=== PATIENT | male | born 2005 | race Caucasian/White ===

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

== ENCOUNTER 2023-01-12 20:49 | Emergency (ER) | payer BC ==
[2023-01-12 21:04] VITALS: BP 115/75; O2SAT 100
--- NOTE | 2023-01-12 21:32 | ED Physician Documentation ---
PD HPI UPPER EXT INJURY - Stated complaint Stated Complaint: RT THUMB PX - Chief complaint Chief Complaint: Trauma Ext - History obtained from History obtained from: Patient PD PAST MEDICAL HISTORY - Past Medical History Past Medical History: Yes Cardiovascular: None Respiratory: Asthma Neuro: None Endocrine/Autoimmune: None GI: None : None HEENT: None Psych: Anxiety, Panic attacks, ADD/ADHD, Other Musculoskeletal: Chronic back pain Derm: None Other Past Medical History: Smokes marijuana sometimes - Past Surgical History Past Surgical History: Yes General: Appendectomy - Present Medications Home Medications: Ambulatory Orders Medication Instructions Recorded Confirmed Clotrimazole 1% Cream [Lotrimin 1% 1 applic TOP BID #15 gm 12/25/22 01/12/23 Cream] Promethazine [Phenergan] 25 mg PO Q6H PRN #15 tab 12/28/22 01/12/23 - Allergies Allergies/Adverse Reactions: Allergies Allergy/AdvReac Type Severity Reaction Status Date / Time amphetamine [From Adderall] AdvReac Hallucinati Verified 01/12/23 21:01 ons dextroamphetamine AdvReac Hallucinati Verified 01/12/23 21:01 [From Adderall] ons - Social History Does the pt smoke?: No Smoking Status: Never smoker Does the pt drink ETOH?: Yes Does the pt have substance abuse?: No - Immunizations Immunizations are current?: Yes - POLST Patient has POLST: No Results - Vitals Vitals: Vital Signs - 24 hr 01/12/23 20:59 Temperature 36.8 C Heart Rate 103 H Respiratory 16 Rate Blood Pressure 115/75 O2 Saturation 100 Oxygen O2 Source Room air Departure - Departure
--- NOTE | 2023-01-12 21:49 | ED Physician Documentation ---
PD HPI UPPER EXT INJURY - Stated complaint Stated Complaint: RT THUMB PX - Chief complaint Chief Complaint: Trauma Ext - History obtained from History obtained from: Patient (Slammed the base of the dominant right thumb in a car door at home earlier today. Moderate pain. No other injuries.) PD PAST MEDICAL HISTORY - Past Medical History Past Medical History: Yes Cardiovascular: None Respiratory: Asthma Neuro: None Endocrine/Autoimmune: None GI: None : None HEENT: None Psych: Anxiety, Panic attacks, ADD/ADHD, Other Musculoskeletal: Chronic back pain Derm: None Other Past Medical History: Smokes marijuana sometimes - Past Surgical History Past Surgical History: Yes General: Appendectomy - Present Medications Home Medications: Ambulatory Orders Medication Instructions Recorded Confirmed Clotrimazole 1% Cream [Lotrimin 1% 1 applic TOP BID #15 gm 12/25/22 01/12/23 Cream] Promethazine [Phenergan] 25 mg PO Q6H PRN #15 tab 12/28/22 01/12/23 - Allergies Allergies/Adverse Reactions: Allergies Allergy/AdvReac Type Severity Reaction Status Date / Time amphetamine [From Adderall] AdvReac Hallucinati Verified 01/12/23 21:01 ons dextroamphetamine AdvReac Hallucinati Verified 01/12/23 21:01 [From Adderall] ons - Social History Does the pt smoke?: No Smoking Status: Never smoker Does the pt drink ETOH?: Yes Does the pt have substance abuse?: No - Immunizations Immunizations are current?: Yes - POLST Patient has POLST: No PD ED PE NORMAL - Vitals Vital signs reviewed: Yes - General General: Alert and oriented X 3, No acute distress - Extremities Extremities: Other (Mild tenderness of the MCP of the right thumb without bruising, deformity. Limited range of motion due to pain. No distal neurovascular compromise.) - Neuro Neuro: Alert and oriented X 3, Normal speech Results - Vitals Vitals: Vital Signs - 24 hr 01/12/23 20:59 Temperature 36.8 C Heart Rate 103 H Respiratory 16 Rate Blood Pressure 115/75 O2 Saturation 100 Oxygen O2 Source Room air - Rads (name of study) 3v XR R thumb - Neg Relevant Findings:: Final report received, EMP independent interpretation of test PD Medical Decision Making - ED course Complexity details: considered differential, d/w patient Departure - Departure Disposition: 01 Home, Self Care Clinical Impression: Contusion of right thumb Qualifiers: Encounter type: initial encounter Damage to nail status: without damage Qualified Code(s): S60.011A - Contusion of right thumb without damage to nail, initial encounter Condition: Good Record reviewed to determine appropriate education?: Yes Instructions: ED Contusion Finger Comments: Tylenol and/or ibuprofen as needed for pain. Ice and elevate. Return for new or worsening symptoms. Follow-up with your doctor in a week if not better. Forms: PCP List, Activity restrictions Discharge Date/Time: 01/12/23 21:55
--- NOTE | 2023-01-12 22:19 | XRAY Report ---
PROCEDURE: Finger(s) RT INDICATIONS: Right thumb injury TECHNIQUE: AP hand, 2 views of the first finger(s) acquired. COMPARISON: None. FINDINGS: Bones: No fractures or dislocations. No suspicious bony lesions. Soft tissues: No suspicious soft tissue calcifications or masses. IMPRESSION: No acute bony abnormality. If clinical symptoms persist, consider a follow-up exam in 710 days. Reviewed by: Brent Kurtz MD on 01/12/2023 10:17 PM PDT Approved by: Brent Kurtz MD on 01/12/2023 10:17 PM PDT Station ID: [id number]
== END 2023-01-12 21:55 | disposition home or self-care (01) ==
LOC: ED 20:49
DX: S60.011A Contusion of right thumb without damage to nail, initial encounter (principal); W23.0XXA Caught, crushed, jammed, or pinched between moving objects, initial encounter; Y92.810 Car as the place of occurrence of the external cause
CPT/HCPCS: 99283

== ENCOUNTER 2023-01-19 11:39 | Emergency (ER) | payer BC ==
[2023-01-19] MEDS ORDERED: ONDANSETRON ODT 4 MG TABLET TL STA (12:34)
--- NOTE | 2023-01-19 12:37 | ED Physician Documentation ---
History of Present Illness - Stated complaint Stated Complaint: ABD PX,NAUSEA - Chief complaint Chief Complaint: Abd Pain - Additonal information Additional information: 17-year-old male presents emergency department for evaluation of nausea, vomiting and diarrhea. Reports the symptoms began about 730 when he got home from work. States that he was feeling unwell while at [employer] and he went to the health clinic where they checked his sugar and found it was in the 60s. Patient reports that with vomiting and diarrhea he felt weak, shaky and had difficulty walking. With rest and eating at home this has improved. Presentation to the emergency department he is alert though anxious appearing. No worrisome vital sign abnormalities. Patient has had multiple ED visits over the last month or so frequently for vomiting and upper epigastric pain. Had a negative ultrasound. Labs were unremarkable. Patient is declining labs today. He just wants to make sure that he is "okay" Review of Systems Constitutional: denies: Fever, Chills Cardiac: reports: Reviewed and negative Respiratory: reports: Reviewed and negative GI: reports: Abdominal Pain, Nausea, Vomiting, Diarrhea : reports: Reviewed and negative Skin: reports: Reviewed and negative PD PAST MEDICAL HISTORY - Past Medical History Past Medical History: Yes Cardiovascular: None Respiratory: Asthma Neuro: None Endocrine/Autoimmune: None GI: None : None HEENT: None Psych: Anxiety, Panic attacks, ADD/ADHD, Other Musculoskeletal: Chronic back pain Derm: None - Past Surgical History Past Surgical History: Yes General: Appendectomy - Present Medications Home Medications: Ambulatory Orders Medication Instructions Recorded Confirmed Sertraline [Zoloft] 25 mg PO DAILY 01/19/23 01/19/23 - Allergies Allergies/Adverse Reactions: Allergies Allergy/AdvReac Type Severity Reaction Status Date / Time amphetamine [From Adderall] AdvReac Hallucinati Verified 01/19/23 11:58 ons dextroamphetamine AdvReac Hallucinati Verified 01/19/23 11:58 [From Adderall] ons - Social History Does the pt smoke?: No Smoking Status: Never smoker Does the pt drink ETOH?: Yes Does the pt have substance abuse?: No - Immunizations Immunizations are current?: Yes - POLST Patient has POLST: No PD ED PE NORMAL - General General: Alert and oriented X 3. No: No acute distress (appears anxious) - HEENT HEENT: PERRL - Neck Neck: Supple, no meningeal sign - Cardiac Cardiac: RRR, No murmur - Respiratory Respiratory: No respiratory distress - Abdomen Abdomen: Normal bowel sounds, Soft, Non tender (No abdominal tenderness elicited with palpation or percussion) - Back Back: No CVA TTP - Derm Derm: Normal color, Warm and dry - Extremities Extremities: No deformity - Neuro Neuro: Alert and oriented X 3 Eye Opening: Spontaneous Motor: Obeys Commands Verbal: Oriented GCS Score: 15 Results - Vitals Vitals: Vital Signs - 24 hr 01/19/23 11:55 Temperature 36.7 C Heart Rate 74 Respiratory 16 Rate Blood Pressure 101/59 L O2 Saturation 100 Oxygen O2 Source Room air - Labs Labs: Laboratory Tests 01/19/23 12:33 POC Whole Bld Glucose 72 PD Medical Decision Making - ED course Complexity details: reviewed results, re-evaluated patient, d/w patient ED course: 17-year-old male presents emergency department for evaluation of nausea vomiting and diarrhea. Symptoms began shortly after he finished his work overnight at [employer]. Reports he was feeling somewhat nauseated at work and they checked his blood sugar and found that it was in the 60s. Patient does endorse cannabis use but last use yesterday in the a.m. By the time patient arrived to the emergency department he was tolerating p.o.'s and was no longer vomiting. He declined laboratory testing today. Seen recently in the ER for similar and had unremarkable labs as well as upper abdominal ultrasound imaging. On evaluation he is without fever or tachycardia or hypotension. He is not actively vomiting. He was given a single dose of Zofran and tolerating p.o.'s. Blood sugar was 72. I discussed with patient that historically given unremarkable ultrasound imaging likely causes of recurrent upper abdominal pain include cannabis use, anxiety reviewed GERD gastritis. Patient has not yet filled the prescription for the Carafate and omeprazole that was previously prescribed. He is advised to follow closely with the PCP. I encouraged him to reconsider his cannabis use. The usual emergent return precautions for worsening or recurrent symptoms was discussed. Departure - Departure Disposition: 01 Home, Self Care Clinical Impression: Nausea and vomiting Qualifiers: Vomiting type: unspecified Qualified Code(s): R11.2 - Nausea with vomiting, unspecified Condition: Stable Instructions: ED Nausea Vomiting Comments: Gilles bear are seen today in the emergency department for nausea and vomiting. You had multiple ED visits for similar. Recent laboratory testing has been unremarkable. Recent ultrasound of your upper abdominal region showed no concerns with your gallbladder or liver. Common causes of recurrent vomiting include acid reflux or gastritis, anxiety as well as cannabis use. I would encourage you to abstain from cannabis use for at least several weeks or even months. If you are able to please fill the prescription for the nausea and acid reflux medications that were previously prescribed. I encourage you to abstain from caffeine, citrus foods and spicy foods. Try to eat multiple small frequent meals throughout the day. You can use the on gestrinone or Zofran as needed for nausea. Please follow closely with your primary care doctor. If these therapies are not improving your symptoms you may benefit from referral for an endoscopy or upper GI evaluation to rule out gastritis. Return to the ER if you have fevers, uncontrolled vomiting, any black or bloody stools. Forms: PCP List
[2023-01-19 13:28] VITALS: BP 108/65; O2SAT 99
== END 2023-01-19 13:21 | disposition home or self-care (01) ==
LOC: ED 11:39
DX: R11.2 Nausea with vomiting, unspecified (principal)
CPT/HCPCS: 99282; 99283; Q0162

== ENCOUNTER 2023-01-22 17:17 | Emergency (ER) | payer BC ==
[2023-01-22 19:44] VITALS: BP 108/67; O2SAT 97
[2023-01-22] MEDS ORDERED: KETOROLAC 30 MG/ML VIAL IM STA (20:02)
--- NOTE | 2023-01-22 20:04 | ED Physician Documentation ---
History of Present Illness - Stated complaint Stated Complaint: BACK PX - Chief complaint Chief Complaint: Back Pain - Additonal information Additional information: Nineteen 1-year-old male presents emergency department for evaluation of acute low back pain. He felt yesterday evening when he was getting off work. Did not think much of it but when he woke up this morning he had a stiff back. He is taken nothing for pain. No saddle anesthesia, loss of bowel. Antalgic gait but ambulatory without assistance. Review of Systems Musculoskeletal: reports: Back pain PD PAST MEDICAL HISTORY - Past Medical History Cardiovascular: None Respiratory: Asthma Neuro: None Endocrine/Autoimmune: None GI: None : None HEENT: None Psych: Anxiety, Panic attacks, ADD/ADHD, Other Musculoskeletal: Chronic back pain Derm: None - Past Surgical History Past Surgical History: Yes General: Appendectomy - Present Medications Home Medications: Ambulatory Orders Medication Instructions Recorded Confirmed Sertraline [Zoloft] 25 mg PO DAILY 01/19/23 01/22/23 Acetaminophen [Tylenol] 500 mg PO Q4-6H #30 tablet 01/22/23 Ibuprofen [Motrin] 600 mg PO Q6H PRN #30 tab 01/22/23 - Allergies Allergies/Adverse Reactions: Allergies Allergy/AdvReac Type Severity Reaction Status Date / Time amphetamine [From Adderall] AdvReac Hallucinati Verified 01/19/23 11:58 ons dextroamphetamine AdvReac Hallucinati Verified 01/19/23 11:58 [From Adderall] ons - Social History Does the pt smoke?: No Smoking Status: Never smoker Does the pt drink ETOH?: Yes Does the pt have substance abuse?: No - Immunizations Immunizations are current?: Yes - POLST Patient has POLST: No PD ED PE NORMAL - General General: Alert and oriented X 3, No acute distress - HEENT HEENT: PERRL - Back Back: No spinal TTP (No midline lumbar tenderness. Reduced forward flexion secondary to pain. No rash. Bilateral paraspinous tenderness. Patient has difficulty standing fully upright. Motor strength 5 of 5.) - Derm Derm: Warm and dry, No rash - Extremities Extremities: No deformity Results - Vitals Vitals: Vital Signs - 24 hr 01/22/23 01/22/23 17:29 19:41 Temperature 36.6 C 36.4 C L Heart Rate 110 H 77 Respiratory 18 16 Rate Blood Pressure 127/77 108/67 O2 Saturation 99 97 Oxygen O2 Source Room air PD Medical Decision Making - ED course Complexity details: d/w patient ED course: 17-year-old male here for evaluation of acute low back pain. No red flags. Reassuring exam. Had not taken anything for pain. He received Toradol IM with marked improvement in symptoms. Recommended Tylenol Motrin [id number] for discomfort. Discussed routine conservative care measures of mild back strain. Emergent red flag return precautions discussed Departure - Departure Disposition: Home, Self Care Clinical Impression: Low back pain Qualifiers: Chronicity: acute Back pain laterality: bilateral Sciatica presence: without sciatica Qualified Code(s): M54.50 - Low back pain, unspecified Condition: Stable Record reviewed to determine appropriate education?: Yes Instructions: ED Sprain Strain Lumbar Prescriptions: Ibuprofen [Motrin] 600 mg PO Q6H PRN #30 tab PRN Reason: Pain Acetaminophen [Tylenol] 500 mg PO Q4-6H #30 tablet Comments: Gilles you sprained or strained your low back. Most instances of low back pain like this get better over the course of a week or so. In general gentle stretching is recommended. I recommend that you attempt to walk fully upright and in a normal position. This will prevent other muscles from compensating. Please take Tylenol 500 mg 2-3 times a day for discomfort or alternate with Motrin/ibuprofen/Advil 600 mg taken with food also 2-3 times a day. If at any point you develop numbness in your genital area, lose control of your bowel or bladder function then you should please return to the ER. Otherwise follow closely with your primary care doctor.
== END 2023-01-22 21:02 | disposition home or self-care (01) ==
LOC: ED 17:17
DX: M54.50 Low back pain, unspecified (principal)
CPT/HCPCS: 96372; 99283

== ENCOUNTER 2023-01-28 16:00 | Outpatient (CLI) | payer BC ==
--- NOTE | 2023-01-28 16:41 | XRAY Report ---
PROCEDURE: Lumbar Spine 2 View INDICATIONS: LOW BACK PAIN TECHNIQUE: 3 views of the lumbar spine were acquired. COMPARISON: None. FINDINGS: Bones: 5 [id number] vertebrae are present. There is normal bony alignment. No vertebral body compression fractures. No suspicious bony lesions. Soft tissues: Overlying bowel gas pattern is normal. No suspicious soft tissue calcifications. IMPRESSION: No acute osseous lesion. If there is continued clinical concern for pathology, then MRI should be con sidered for further evaluation. Reviewed by: Jennifer Conner MD, PhD on 01/28/2023 4:40 PM PST Approved by: Jennifer Conner MD, PhD on 01/28/2023 4:40 PM PST Station ID: [id number]
== END 2023-01-28 16:01 | disposition home or self-care (01) ==
LOC: DI 16:00
PROVIDERS: ATTEND Family Medicine
DX: M54.50 Low back pain, unspecified (principal); M54.59 Other low back pain

== ENCOUNTER 2023-01-30 16:27 | Outpatient (CLI) | payer BC | END 2023-01-30 16:28 | disposition critical access hospital (66) | LOC: EMS 16:27 | DX: R06.02 Shortness of breath (principal); Z20.828 Contact with and (suspected) exposure to other viral communicable diseases | CPT/HCPCS: A0425; A0429 ==

== ENCOUNTER 2023-01-30 16:35 | Emergency (ER) | payer BC ==
--- NOTE | 2023-01-30 16:46 | ED Physician Documentation ---
PD HPI URI - Stated complaint Stated Complaint: SOA - Chief complaint Chief Complaint: Resp - History obtained from History obtained from: Patient, EMS - Additional information Additional information: 17-year-old with mild intermittent asthma was exposed to rhinovirus by multiple for members of the family has been sick for about 3 days with cough, nonproductive, shortness of breath nasal congestion and sore throat. No fevers. Seen at the walk-in clinic and given something for cough but feeling like he is using his albuterol inhaler too much. PD PAST MEDICAL HISTORY - Past Medical History Past Medical History: Yes Cardiovascular: None Respiratory: Asthma Neuro: None Endocrine/Autoimmune: None GI: None : None HEENT: None Psych: Anxiety, Panic attacks, ADD/ADHD, Other Musculoskeletal: Chronic back pain Derm: None - Past Surgical History Past Surgical History: Yes General: Appendectomy - Present Medications Home Medications: Ambulatory Orders Medication Instructions Recorded Confirmed Sertraline [Zoloft] 25 mg PO DAILY 01/19/23 01/22/23 Acetaminophen [Tylenol] 500 mg PO Q4-6H #30 tablet 01/22/23 Ibuprofen [Motrin] 600 mg PO Q6H PRN #30 tab 01/22/23 Famotidine [Acid Rehabilitation Specialist] 20 mg PO DAILY 01/30/23 01/30/23 Ibuprofen [Motrin] 600 mg PO Q6H PRN #30 tab 01/30/23 predniSONE [Deltasone] 20 mg PO [id number] #21 tab 01/30/23 - Allergies Allergies/Adverse Reactions: Allergies Allergy/AdvReac Type Severity Reaction Status Date / Time amphetamine [From Adderall] AdvReac Hallucinati Verified 01/30/23 16:44 ons dextroamphetamine AdvReac Hallucinati Verified 01/30/23 16:44 [From Adderall] ons - Social History Does the pt smoke?: No Smoking Status: Never smoker Does the pt drink ETOH?: Yes Does the pt have substance abuse?: No - Immunizations Immunizations are current?: Yes - POLST Patient has POLST: No PD ED PE NORMAL - Vitals Vital signs reviewed: Yes - General General: Alert and oriented X 3, No acute distress - Cardiac Cardiac: RRR, No murmur - Respiratory Respiratory: No respiratory distress, Clear bilaterally - Neuro Neuro: Alert and oriented X 3, Normal speech Results - Vitals Vitals: Vital Signs - 24 hr 01/30/23 16:40 Temperature 36.7 C Heart Rate 120 H Respiratory 18 Rate Blood Pressure 121/74 O2 Saturation 98 Oxygen O2 Source Room air PD Medical Decision Making - ED course ED course: 17-year-old with history of asthma presents with shortness of breath in the setting of known viral URI with rhinovirus with multiple family members being sick. Will start on steroids. No clinical evidence of pneumonia or bacterial illness. Departure - Departure Disposition: 01 Home, Self Care Clinical Impression: Asthma Qualifiers: Asthma severity: mild Asthma persistence: intermittent Asthma complication type: with acute exacerbation Qualified Code(s): J45.21 - Mild intermittent asthma with (acute) exacerbation Upper respiratory tract infection Qualifiers: URI type: unspecified viral URI Qualified Code(s): J06.9 - Acute upper respiratory infection, unspecified Condition: Good Record reviewed to determine appropriate education?: Yes Instructions: Asthma Dc Prescriptions: predniSONE [Deltasone] 20 mg PO [id number] #21 tab Ibuprofen [Motrin] 600 mg PO Q6H PRN #30 tab PRN Reason: Pain Comments: You were seen today for an asthma exacerbation likely related to the rhinovirus that multiple family members have. I am prescribing some steroids which should help with your shortness of breath. Also some anti-inflammatories for the aches and pains. Return for new or worsening symptoms or for high fevers. Follow-up with your doctor in a week if not improving. Forms: PCP List, Activity restrictions
[2023-01-30] MEDS: predniSONE 20 MG TABLET PO STA ×2 (16:52→17:56)
[2023-01-30] MEDS ORDERED: ONDANSETRON ODT 4 MG TABLET TL STA (16:53)
[2023-01-30] MEDS ORDERED: PROMETHAZINE 25 MG/1 ML VIAL IM STA (17:23)
[2023-01-30 18:09] VITALS: BP 119/68; O2SAT 97
== END 2023-01-30 18:01 | disposition home or self-care (01) ==
LOC: EDUNIT# → ED 16:35
DX: J45.21 Mild intermittent asthma with (acute) exacerbation (principal); J06.9 Acute upper respiratory infection, unspecified; Z79.899 Other long term (current) drug therapy
CPT/HCPCS: 96372; 99283; 99284; J7512; Q0162

== ENCOUNTER 2023-02-02 09:50 | Outpatient (CLI) | payer BC | END 2023-02-02 23:59 | disposition home or self-care (01) | LOC: EMS 09:50 | DX: R11.2 Nausea with vomiting, unspecified (principal) | CPT/HCPCS: A0425; A0429 ==

== ENCOUNTER 2023-02-02 10:00 | Emergency (ER) | payer BC ==
[2023-02-02] MEDS ORDERED: SODIUM CHLORIDE 0.9% 1,000 ML IV STA (10:20)
[2023-02-02] MEDS ORDERED: DROPERIDOL 5 MG/2 ML VIAL IVP STA (10:20)
--- NOTE | 2023-02-02 10:21 | ED Physician Documentation ---
PD HPI NVD - Stated complaint Stated Complaint: N/V - Chief complaint Chief Complaint: Abd Pain - History obtained from History obtained from: Patient, EMS - Additonal information Additional information: 17-year-old Daily cannabis user presents with 3 days of epigastric pain, severe vomiting. He has had a little bit of diarrhea with this but really the vomiting is most concerning thing. He has had concerns for cannabinoid hyperemesis in the past but states "I quit using and it did not help." Of note this is his ninth emergency department visit in 2 months. PD PAST MEDICAL HISTORY - Past Medical History Past Medical History: Yes Cardiovascular: None Respiratory: Asthma Neuro: None Endocrine/Autoimmune: None GI: GERD : None HEENT: None Psych: Depression, Anxiety, Panic attacks, ADD/ADHD, Other Musculoskeletal: Chronic back pain Derm: None - Past Surgical History Past Surgical History: Yes General: Appendectomy - Present Medications Home Medications: Ambulatory Orders Medication Instructions Recorded Confirmed Sertraline [Zoloft] 50 mg PO DAILY 01/19/23 02/02/23 Famotidine [Acid Pouncing Lathe Operator] 20 mg PO DAILY 01/30/23 02/02/23 Albuterol Sulf [Ventolin Hfa 1 - 2 puffs INH Q4HR PRN 02/02/23 02/02/23 Inhaler] LORazepam [Ativan] 1 mg PO TID PRN #6 tablet 02/02/23 Ondansetron Odt [Zofran Odt] 4 mg TL Q8H PRN 02/02/23 02/02/23 Ondansetron Odt [Zofran] 4 mg TL Q6H PRN #10 tablet 02/02/23 - Allergies Allergies/Adverse Reactions: Allergies Allergy/AdvReac Type Severity Reaction Status Date / Time amphetamine [From Adderall] AdvReac Hallucinati Verified 02/02/23 10:06 ons dextroamphetamine AdvReac Hallucinati Verified 02/02/23 10:06 [From Adderall] ons - Social History Does the pt smoke?: No Smoking Status: Never smoker Does the pt drink ETOH?: Yes Does the pt have substance abuse?: Yes Substance Use and Type: Marijuana - Immunizations Immunizations are current?: Yes - POLST Patient has POLST: No PD ED PE NORMAL - Vitals Vital signs reviewed: Yes - General General: Alert and oriented X 3, Other (Crying and anxious) - Abdomen Abdomen: Normal bowel sounds, Soft, Non tender - Neuro Neuro: Alert and oriented X 3, Normal speech Results - Vitals Vitals: Vital Signs - 24 hr 02/02/23 02/02/23 02/02/23 10:07 11:10 11:42 Temperature 36.8 C 36.8 C 36.9 C Heart Rate 108 H 112 H 95 Respiratory 20 16 18 Rate Blood Pressure 156/96 H 136/89 H 147/97 H O2 Saturation 100 97 98 Oxygen O2 Source Room air - Labs Labs: Laboratory Tests 02/02/23 10:15 Sodium 137 Potassium 3.4 L Chloride 99 L Carbon Dioxide 26 Anion Gap 12.0 BUN 10 Creatinine 0.7 Estimated GFR (MDRD) 145 Glucose 93 Calcium 10.5 H PD Medical Decision Making - ED course ED course: 17-year-old with anxiety and vomiting, most consistent with cannabinoid hyperemesis. He is nontender. BMP showing mild hypokalemia repleted orally. After administration of IV fluids and IV droperidol he was feeling much better. Departure - Departure Disposition: 01 Home, Self Care Clinical Impression: Cannabinoid hyperemesis syndrome Condition: Good Record reviewed to determine appropriate education?: Yes Instructions: ED Nausea Vomiting Prescriptions: LORazepam [Ativan] 1 mg PO TID PRN #6 tablet PRN Reason: Anxiety Ondansetron Odt [Zofran] 4 mg TL Q6H PRN #10 tablet PRN Reason: Nausea / Vomiting Comments: I sent your prescription electronically to [facility] in [place]. As discussed, your constellation of symptoms is most consistent with cannabinoid hyperemesis. Its not healthy to use any drug including THC daily. Call your doctor to arrange a follow-up appointment, make the next available appointment. In the interim, return anytime if worse or if new symptoms develop. Forms: PCP List, Activity restrictions Discharge Date/Time: 02/02/23 11:48
[2023-02-02 10:37] LABS: CALCIUM 10.5 mg/dL (8.5-10.3); CREATININE 0.7 mg/dL (0.6-1.3); POTASSIUM 3.4 mmol/L (3.5-4.5)
[2023-02-02] MEDS ORDERED: POTASSIUM BICARB 25 MEQ TABLET PO STA (10:46)
[2023-02-02 11:43] VITALS: BP 147/97; O2SAT 98
== END 2023-02-02 11:48 | disposition home or self-care (01) ==
LOC: EDUNIT# → ED 10:00
DX: R11.10 Vomiting, unspecified (principal); F12.90 Cannabis use, unspecified, uncomplicated; E87.6 Hypokalemia; Z79.899 Other long term (current) drug therapy
CPT/HCPCS: 36415; 80048; 96374; 99283; A9270

== ENCOUNTER 2023-05-13 13:53 | Emergency (ER) | payer BC ==
[2023-05-13 14:07] VITALS: BP 132/71; O2SAT 100
[2023-05-13] MEDS: ONDANSETRON 4 MG/2 ML VIAL IVP STA (14:23)
[2023-05-13] MEDS: ONDANSETRON ODT 4 MG TABLET TL STA (14:23)
[2023-05-13 14:53] LABS: BASOPHILS # (AUTO) 0.1 10^3/uL (0.0-0.1); BASOPHILS % (AUTO) 0.9 %; EOSINOPHILS # (AUTO) 0.2 10^3/uL (0.0-0.7); EOSINOPHILS % (AUTO) 2.8 %; HCT - HEMATOCRIT 42.6 % (42.0-52.0); HGB - HEMOGLOBIN 14.4 g/dL (14.0-18.0); LYMPHOCYTES # (AUTO) 2.1 10^3/uL (1.5-3.5); MEAN CORPUSCULAR HEMOGLOBIN 29.9 pg (27.0-31.0); MEAN CORPUSCULAR HGB CONC 33.8 g/dL (32.0-36.0); MEAN CORPUSCULAR VOLUME 88.6 fL (80.0-94.0); MEAN PLATELET VOLUME 10.4 fL (7.4-11.4); MONOCYTES # (AUTO) 0.6 10^3/uL (0.0-1.0); PLT - PLATELET COUNT 248 10^3/uL (130-450); RED BLOOD COUNT 4.81 10^6/uL (4.70-6.10); RED CELL DISTRIBUTION WIDTH 12.5 % (12.0-15.0); WHITE BLOOD COUNT 7.9 x10^3/uL (4.8-10.8)
[2023-05-13 15:08] LABS: ALBUMIN 4.7 g/dL (3.2-5.5); ALBUMIN/GLOBULIN RATIO 1.6 (1.0-2.2); ALKALINE PHOSPHATASE 77 IU/L (42-121); ALT ALANINE AMINOTRANSFERASE 12 IU/L (10-60); AST ASPARTATE AMINOTRANSFERASE 14 IU/L (10-42); BILIRUBIN,TOTAL 0.7 mg/dL (0.2-1.0); BUN - BLOOD UREA NITROGEN 12 mg/dL (6-20); CALCIUM 10.2 mg/dL (8.5-10.3); CARBON DIOXIDE - CO2 26 mmol/L (21-32); CHLORIDE 107 mmol/L (101-111); CREATININE 0.7 mg/dL (0.6-1.3); GFR - MDRD 145 (>89); GLUCOSE 91 mg/dL (74-104); POTASSIUM 3.5 mmol/L (3.5-4.5); SODIUM 140 mmol/L (135-145); TOTAL PROTEIN 7.6 g/dL (6.4-8.9)
[2023-05-13 15:11] LABS: LIPASE < 10 U/L (11-82)
--- NOTE | 2023-05-13 15:20 | ED Physician Documentation ---
PD HPI GI BLEED - Stated complaint Stated Complaint: MALE - Chief complaint Chief Complaint: Abd Pain - History obtained from History obtained from: Patient - Additional information Additional information: Patient is a 17-year-old male presenting for evaluation of blood in his stools that he noticed around lunchtime today. Patient states he was at work and felt the need to have a bowel movement. Instead of normal stools he reports it was mostly bloody with some clots. He had some cramping at that time. He has nausea. He has had ongoing issues with upper abdominal pain and reports having upper endoscopy through [facility]. He believes he has ulcers as he states it was listed on his paperwork but he states that no one told him about this and that he is not on any medications and was not instructed to modify his diet or make any other changes. He is supposed to have a follow- up appointment in a few months. He has never had a colonoscopy. He does not take a blood thinner. Review of Systems Constitutional: denies: Fever Cardiac: denies: Chest pain / pressure Respiratory: denies: Dyspnea GI: reports: Bloody / black stool. denies: Abdominal Pain, Vomiting : denies: Dysuria, Hematuria PD PAST MEDICAL HISTORY - Past Medical History Cardiovascular: None Respiratory: Asthma Neuro: None Endocrine/Autoimmune: None GI: GERD : None HEENT: None Psych: Depression, Anxiety, Panic attacks, ADD/ADHD, Other Musculoskeletal: Chronic back pain Derm: None - Past Surgical History Past Surgical History: Yes General: Appendectomy - Present Medications Home Medications: Ambulatory Orders Medication Instructions Recorded Confirmed No Known Home Medications 05/13/23 05/13/23 - Allergies Allergies/Adverse Reactions: Allergies Allergy/AdvReac Type Severity Reaction Status Date / Time amphetamine [From Adderall] AdvReac Hallucinati Verified 05/13/23 14:06 ons dextroamphetamine AdvReac Hallucinati Verified 05/13/23 14:06 [From Adderall] ons - Social History Does the pt smoke?: No Smoking Status: Never smoker Does the pt drink ETOH?: Yes Does the pt have substance abuse?: Yes - Immunizations Immunizations are current?: Yes - POLST Patient has POLST: No PD ED PE NORMAL - General General: Alert and oriented X 3, No acute distress, Well developed/nourished - HEENT HEENT: Atraumatic, Moist mucous membranes, Pharynx benign - Neck Neck: Supple, no meningeal sign - Cardiac Cardiac: RRR, Strong equal pulses - Respiratory Respiratory: No respiratory distress, Clear bilaterally - Abdomen Abdomen: Normal bowel sounds, Soft, Non tender, Non distended - Rectal Rectal: Other (Chaperoned by Jassi; No external masses, no visible fissure, no blood on glove, yellow-colored stool) - Derm Derm: Warm and dry - Neuro Neuro: Normal speech Results - Vitals Vitals: Vital Signs - 24 hr 05/13/23 13:59 Temperature 36.5 C Heart Rate 101 H Respiratory 20 Rate Blood Pressure 132/71 H O2 Saturation 100 Oxygen O2 Source Room air - Labs Labs: Microbiology 05/13/23 15:26 Occult Blood - Final Stool Laboratory Tests 05/13/23 05/13/23 14:38 14:38 WBC 7.9 RBC 4.81 Hgb 14.4 Hct 42.6 MCV 88.6 MCH 29.9 MCHC 33.8 RDW 12.5 Plt Count 248 MPV 10.4 Neut # (Auto) 5.0 Lymph # (Auto) 2.1 Emmet # (Auto) 0.6 Eos # (Auto) 0.2 Baso # (Auto) 0.1 Absolute Nucleated RBC 0.00 Nucleated RBC % 0.0 Sodium 140 Potassium 3.5 Chloride 107 Carbon Dioxide 26 Anion Gap 7.0 BUN 12 Creatinine 0.7 Estimated GFR (MDRD) 145 Glucose 91 Calcium 10.2 Total Bilirubin 0.7 AST 14 ALT 12 Alkaline Phosphatase 77 Total Protein 7.6 Albumin 4.7 Globulin 2.9 Albumin/Globulin Ratio 1.6 Lipase < 10 L PD Medical Decision Making - ED course Complexity details: reviewed results, d/w patient ED course: Patient is a 17-year-old male presenting for evaluation of bright red blood per rectum earlier today. Patient reports having nausea which improved after p.o. Zofran. No abdominal tenderness noted on exam. Vital signs are stable. Does not take a blood thinner. No repeated episodes. He is ambulatory here without any difficulty. CBC and chemistries were reviewed without any significant findings. No blood or abnormalities noted on rectal exam and Hemoccult is negative. Patient has seen GI in the past including recently for upper endoscopy. Recommend close follow-up to determine whether if he should have a colonoscopy to evaluate his rectal bleeding today. Patient counseled on concerning symptoms to return for. Departure - Departure Disposition: 01 Home, Self Care Clinical Impression: Bright red blood per rectum Condition: Stable Instructions: ED Hematochezia Stable Comments: You were evaluated for blood in your stools. At this time your labs are reassuring and you have not lost a significant amount of blood. I would recomm end close follow-up with your guest service host (GI doctors, same ones who did get your scope to look in your stomach) To decide whether you should have a colonoscopy which is a scope that looks Into the rectum and colon to identify possible causes for the bleeding in your stools. Our testing of your stools today does not show blood but You still need close follow-up. Return to the ER with any worsening symptoms such as feeling lightheaded, abdominal pain, weakness. Forms: PCP List Discharge Date/Time: 05/13/23 15:52
== END 2023-05-13 15:52 | disposition home or self-care (01) ==
LOC: ED 13:53
DX: K62.5 Hemorrhage of anus and rectum (principal); R11.0 Nausea
CPT/HCPCS: 36415; 80053; 82272; 83690; 85025; 99283; Q0162

== ENCOUNTER 2023-08-25 17:08 | Emergency (ER) | payer BC, OTHER ==
[2023-08-25 17:27] VITALS: BP 116/63; O2SAT 99
--- NOTE | 2023-08-25 17:29 | ED Physician Documentation ---
History of Present Illness - Stated complaint Stated Complaint: STUFFY NOSE, - Chief complaint Chief Complaint: General - History obtained from History obtained from: Patient - Additonal information Additional information: The patient comes to the emergency department chief complaint of nasal congestion and cough since yesterday morning. He states that he felt a little bit lightheaded during the day and then when he sat down on the toilet to have a bowel movement, he was pushing really hard and suddenly passed out. He states that security from his workplace found him on the floor in the bathroom. Patient denies any fevers or chills. He states he has had a little bit of nausea and still does have that. He stayed home from work today and feels like he is ready to go back now. He denies any chest pain, shortness of breath, or palpitations. He is otherwise fairly healthy. No other complaints at this time. He is no longer feeling lightheaded. PD PAST MEDICAL HISTORY - Past Medical History Cardiovascular: None Respiratory: Asthma Neuro: None Endocrine/Autoimmune: None GI: GERD : None HEENT: None Psych: Depression, Anxiety, Panic attacks, ADD/ADHD, Other Musculoskeletal: Chronic back pain Derm: None - Past Surgical History Past Surgical History: Yes General: Appendectomy - Present Medications Home Medications: Ambulatory Orders Medication Instructions Recorded Confirmed No Known Home Medications 05/13/23 08/25/23 - Allergies Allergies/Adverse Reactions: Allergies Allergy/AdvReac Type Severity Reaction Status Date / Time amphetamine [From Adderall] AdvReac Hallucinati Verified 08/25/23 17:18 ons dextroamphetamine AdvReac Hallucinati Verified 08/25/23 17:18 [From Adderall] ons - Social History Does the pt smoke?: No Smoking Status: Never smoker Does the pt drink ETOH?: Yes Does the pt have substance abuse?: Yes - Immunizations Immunizations are current?: Yes - POLST Patient has POLST: No PD ED PE NORMAL - Vitals Vital signs reviewed: Yes - General General: Alert and oriented X 3, No acute distress, Well developed/nourished - HEENT HEENT: Atraumatic, PERRL, EOMI, Moist mucous membranes - Neck Neck: Supple, no meningeal sign - Cardiac Cardiac: RRR, No murmur, Strong equal pulses - Respiratory Respiratory: No respiratory distress, Clear bilaterally - Abdomen Abdomen: Soft, Non tender, Non distended - Derm Derm: Normal color, Warm and dry, No rash - Extremities Extremities: No deformity, No edema - Neuro Neuro: Other (Alert, appropriate, grossly intact.) - Psych Psych: Normal mood, Normal affect Results - Vitals Vitals: Vital Signs - 24 hr 08/25/23 17:12 Temperature 36.5 C Heart Rate 100 Respiratory 16 Rate Blood Pressure 116/63 O2 Saturation 99 Oxygen O2 Source Room air PD Medical Decision Making - ED course Complexity details: reviewed results, re-evaluated patient, considered differential, d/w patient ED course: A respiratory PCR panel was obtained and send and is pending at this time. I discussed with the patient that his symptoms are fairly minimal and he has been feeling better with regard to the lightheadedness since. His syncopal episode was associated with straining and setting in which the patient was already lightheaded, likely from general illness. He is young and fairly low risk for serious causes of syncope. He is stable for discharge home. We have discussed home management of the symptoms as well as usual indications for return. Departure - Departure Disposition: 01 Home, Self Care Clinical Impression: Viral syndrome Condition: Stable Instructions: ED Viral Syndrome Comments: A viral panel has been sent and is pending at this time. There is no evidence of an emergent condition this evening. Please be sure you are getting plenty of fluids to drink and plenty of rest. If you feel lightheaded, please sit down or lay down until the feeling passes. You may go back to work if you feel well enough to do so. Please follow-up with your primary doctor as needed. Forms: PCP List, Activity restrictions
[2023-08-25 19:18] LABS: B. PARAPERTUSSIS- RESP PCR PAN NOT DETECTED; B. PERTUSSIS- RESP PCR PANEL NOT DETECTED; C. PNEUMONIAE- RESP PCR PANEL NOT DETECTED; CORONAVIRUS 229E-RESP PCR NOT DETECTED; CORONAVIRUS HKU1-RESP PCR NOT DETECTED; CORONAVIRUS NL63-RESP PCR NOT DETECTED; CORONAVIRUS OC43-RESP PCR NOT DETECTED; HUMAN METAPNEUMOVIRUS NOT DETECTED; INFLUENZA A- RESP PCR PANEL NOT DETECTED; INFLUENZA B - RESP PCR PANEL NOT DETECTED; M. PNEUMONIAE- RESP PCR PANEL NOT DETECTED; PARAINFLUENZA VIRUS 1 NOT DETECTED; PARAINFLUENZA VIRUS 2 NOT DETECTED; PARAINFLUENZA VIRUS 3 NOT DETECTED; PARAINFLUENZA VIRUS 4 NOT DETECTED; RHINOVIRUS/ENTEROVIRUS NOT DETECTED; RSV- RESP PCR PANEL NOT DETECTED; SARS-CoV-2 -RESP PCR PANEL NOT DETECTED
== END 2023-08-25 17:41 | disposition home or self-care (01) ==
LOC: ED 17:08
DX: B34.9 Viral infection, unspecified (principal); J45.909 Unspecified asthma, uncomplicated
CPT/HCPCS: 87633; 99283

== ENCOUNTER 2023-08-26 14:32 | Emergency (ER) | payer SELFPAY ==
[2023-08-26 14:55] VITALS: BP 120/76; O2SAT 98
--- NOTE | 2023-08-26 17:41 | ED Physician Documentation ---
PD HPI LOWER EXT INJURY - Stated complaint Stated Complaint: RT LEG INJ - Chief complaint Chief Complaint: Ext Problem - History obtained from History obtained from: Patient - Additional information Additional information: 17-year-old male presents with right hip pain. Patient works at [employer] and states that he has been going up and down a ladder frequently for the last several days. He has pain in his right hip that is atraumatic in nature. He states that he was told by his workplace to come to the ER for evaluation. No medications taken prior to arrival. Review of Systems Constitutional: denies: Fever, Chills Musculoskeletal: reports: Joint pain. denies: Neck pain, Back pain, Extremity pain, Extremity swelling, Joint swelling PD PAST MEDICAL HISTORY - Past Medical History Past Medical History: Yes Cardiovascular: None Respiratory: Asthma Neuro: None Endocrine/Autoimmune: None GI: GERD : None HEENT: None Psych: Depression, Anxiety, Panic attacks, ADD/ADHD, Other Musculoskeletal: Chronic back pain Derm: None - Past Surgical History Past Surgical History: Yes General: Appendectomy - Present Medications Home Medications: Ambulatory Orders Medication Instructions Recorded Confirmed No Known Home Medications 05/13/23 08/26/23 - Allergies Allergies/Adverse Reactions: Allergies Allergy/AdvReac Type Severity Reaction Status Date / Time amphetamine [From Adderall] AdvReac Hallucinati Verified 08/26/23 14:43 ons dextroamphetamine AdvReac Hallucinati Verified 08/26/23 14:43 [From Adderall] ons - Social History Does the pt smoke?: Yes Smoking Status: Current every day smoker Does the pt drink ETOH?: Yes Does the pt have substance abuse?: Yes Substance Use and Type: Marijuana - Immunizations Immunizations are current?: No Immunizations: Other immun not current - POLST Patient has POLST: No PD ED PE NORMAL - Vitals Vital signs reviewed: Yes - General General: Alert and oriented X 3, No acute distress, Well developed/nourished - Derm Derm: Normal color, Warm and dry, No rash - Extremities Extremities: No deformity, No edema, Other (Generalized tenderness along lateral right hip. Pain with [id number] stretch) - Neuro Neuro: Alert and oriented X 3, labor expediter 2-12 intact, No motor deficit, Normal speech Results - Vitals Vitals: Vital Signs - 24 hr 08/26/23 14:43 Temperature 36.5 C Heart Rate 86 Respiratory 16 Rate Blood Pressure 120/76 O2 Saturation 98 Oxygen O2 Source Room air PD Medical Decision Making - ED course Complexity details: considered differential, d/w patient ED course: Atraumatic right hip pain after going up and down ladders. Physical exam is suggestive of muscle strain. Patient counseled to take Tylenol and ibuprofen as needed for pain and to use gentle stretching exercises for relief. Note for work provided. Departure - Departure Disposition: Home, Self Care Clinical Impression: Pain in extremity Condition: Stable Instructions: ED Strain Muscle Ext Comments: Take Tylenol and ibuprofen for discomfort. Use gentle stretching exercises and massage as well for pain. Forms: PCP List Discharge Date/Time: 08/26/23 17:44
== END 2023-08-26 17:44 | disposition home or self-care (01) ==
LOC: ED 14:32
DX: M25.551 Pain in right hip (principal); F17.200 Nicotine dependence, unspecified, uncomplicated
CPT/HCPCS: 99281; 99283

== ENCOUNTER 2023-08-31 17:57 | Emergency (ER) | payer SELFPAY ==
[2023-08-31 18:26] VITALS: BP 120/65; O2SAT 97
--- NOTE | 2023-08-31 18:59 | XRAY Report ---
PROCEDURE: Toe(s) 2+V RT INDICATIONS: right first toe pain TECHNIQUE: 3 views of the right toe(s) acquired. COMPARISON: None. FINDINGS: Bones: No fractures or dislocations. No suspicious bony lesions. Soft tissues: No suspicious soft tissue densities. IMPRESSION: No focal bony abnormality of the great toe can be seen by plain film. Reviewed by: Frankie Schumacher MD on 08/31/2023 5:57 PM AKDT Approved by: Frankie Schumacher MD on 08/31/2023 5:57 PM AKDT Station ID: [id number]
--- NOTE | 2023-08-31 20:26 | ED Physician Documentation ---
PD HPI LOWER EXT INJURY - Stated complaint Stated Complaint: R TOE PX - Chief complaint Chief Complaint: Ext Problem - Additional information Additional information: 17-year-old male presents emergency department for right first toe pain. Pritesh soto actually dropped a weight on it yesterday says that the pain was so severe that he was unable to go to work today able to walk without any difficulty able to flex and extend. PD PAST MEDICAL HISTORY - Past Medical History Cardiovascular: None Respiratory: Asthma Neuro: None Endocrine/Autoimmune: None GI: GERD : None HEENT: None Psych: Depression, Anxiety, Panic attacks, ADD/ADHD, Other Musculoskeletal: Chronic back pain Derm: None - Past Surgical History Past Surgical History: Yes General: Appendectomy - Present Medications Home Medications: Ambulatory Orders Medication Instructions Recorded Confirmed No Known Home Medications 05/13/23 09/01/23 - Allergies Allergies/Adverse Reactions: Allergies Allergy/AdvReac Type Severity Reaction Status Date / Time amphetamine [From Adderall] AdvReac Hallucinati Verified 09/01/23 17:33 ons dextroamphetamine AdvReac Hallucinati Verified 09/01/23 17:33 [From Adderall] ons - Social History Does the pt smoke?: Yes Smoking Status: Current every day smoker Does the pt drink ETOH?: Yes Does the pt have substance abuse?: Yes - Immunizations Immunizations are current?: No Immunizations: Other immun not current - POLST Patient has POLST: No PD ED PE NORMAL - Vitals Vital signs reviewed: Yes - General General: Alert and oriented X 3, No acute distress, Well developed/nourished - Extremities Extremities: Other (Right first toe pain able to flex and send tenderness with palpation) Results - Vitals Vitals: Oxygen O2 Source Room air - Rads (name of study) The right toe x-ray Relevant Findings:: Final report received, EMP independent interpretation of test, Other (normal toe xray) PD Medical Decision Making - ED course ED course: X-rays completed right first toe no fractures or believe he is experiencing pain from a contusion offered Tylenol ibuprofen he declined he just wanted to work note safe for discharge Departure - Departure Disposition: 01 Home, Self Care Clinical Impression: Contusion, toe Instructions: ED Contusion Lower Ext Comments: Thank you for trusting us with your care. X-rays do not reveal any fractures of your right first toe you are okay to go to work tomorrow you can take Tylenol ibuprofen for any pain or discomfort apply ice 20 minutes on 1 hour off. Forms: PCP List Discharge Date/Time: 08/31/23 20:41
[2023-08-31] MEDS: ACETAMINOPHEN 325 MG TABLET PO STA (20:28)
[2023-08-31] MEDS: LIDOCAINE 2% 10 ML MDV SUBQ ONE (20:40)
== END 2023-08-31 20:41 | disposition home or self-care (01) ==
LOC: ED 17:57
DX: S90.111A Contusion of right great toe without damage to nail, initial encounter (principal); W20.8XXA Other cause of strike by thrown, projected or falling object, initial encounter; J45.909 Unspecified asthma, uncomplicated; F17.200 Nicotine dependence, unspecified, uncomplicated
CPT/HCPCS: 73660; 99283; A9270

== ENCOUNTER 2023-09-01 17:26 | Emergency (ER) | payer SELFPAY ==
[2023-09-01 17:37] VITALS: BP 114/62; O2SAT 98
--- NOTE | 2023-09-01 17:44 | ED Physician Documentation ---
PD HPI LOWER EXT INJURY - Stated complaint Stated Complaint: R TOE PX - Chief complaint Chief Complaint: Trauma Ext - History obtained from History obtained from: Patient - Additional information Additional information: Had a right toe injury a couple of days ago. Evaluated here yesterday with negative radiography. Here today requesting a work note because he missed work because of it today. No other concerns. PD PAST MEDICAL HISTORY - Past Medical History Past Medical History: Yes Cardiovascular: None Respiratory: Asthma Neuro: None Endocrine/Autoimmune: None GI: GERD : None HEENT: None Psych: Depression, Anxiety, Panic attacks, ADD/ADHD, Other Musculoskeletal: Chronic back pain Derm: None - Past Surgical History Past Surgical History: Yes General: Appendectomy - Present Medications Home Medications: Ambulatory Orders Medication Instructions Recorded Confirmed No Known Home Medications 05/13/23 09/01/23 - Allergies Allergies/Adverse Reactions: Allergies Allergy/AdvReac Type Severity Reaction Status Date / Time amphetamine [From Adderall] AdvReac Hallucinati Verified 09/01/23 17:33 ons dextroamphetamine AdvReac Hallucinati Verified 09/01/23 17:33 [From Adderall] ons - Social History Does the pt smoke?: Yes Smoking Status: Current every day smoker Does the pt drink ETOH?: Yes Does the pt have substance abuse?: Yes - Immunizations Immunizations are current?: No Immunizations: Other immun not current - POLST Patient has POLST: No PD ED PE NORMAL - Vitals Vital signs reviewed: Yes - General General: Alert and oriented X 3, No acute distress - Extremities Extremities: Other (Right great toe without bruising, swelling, or deformity) - Neuro Neuro: Alert and oriented X 3 Results - Vitals Vitals: Vital Signs - 24 hr 09/01/23 17:28 Temperature 36.6 C Heart Rate 93 Respiratory 16 Rate Blood Pressure 114/62 O2 Saturation 98 Oxygen O2 Source Room air Departure - Departure Disposition: 01 Home, Self Care Clinical Impression: Contusion, toe Qualifiers: Encounter type: initial encounter Toe: great toe Damage to nail status: without damage Laterality: right Qualified Code(s): S90.111A - Contusion of right great toe without damage to nail, initial encounter Condition: Stable Record reviewed to determine appropriate education?: Yes Instructions: ED Contusion Lower Ext Comments: Recheck with your doctor in a week if not improved. Forms: PCP List, Activity restrictions
== END 2023-09-01 17:47 | disposition home or self-care (01) ==
LOC: ED 17:26
DX: S90.111A Contusion of right great toe without damage to nail, initial encounter (principal); X58.XXXA Exposure to other specified factors, initial encounter; J45.909 Unspecified asthma, uncomplicated; F17.200 Nicotine dependence, unspecified, uncomplicated
CPT/HCPCS: 99281; 99282

== ENCOUNTER 2023-09-06 05:12 | Emergency (ER) | payer SELFPAY ==
--- NOTE | 2023-09-06 05:27 | ED Physician Documentation ---
PD HPI HEENT - Stated complaint Stated Complaint: NOSEBLEED - Chief complaint Chief Complaint: Heent - History obtained from History obtained from: Patient - Additional information Additional information: HPI from patient. Patient complains of spontaneous/atraumatic left nare epistaxis since approximately 6 PM yesterday. He noticed this when he was first starting his overnight shift at work. He says it has been approximately 7 years since the last nosebleed that he can recall. He says he was medically evaluated at work and was advised to come to the emergency department; he says that his place of work provides 24-hour medical assessments. Patient says he was advised to come to ED due to the bleeding stopping but then recurring several times since onset. PD PAST MEDICAL HISTORY - Past Medical History Cardiovascular: None Respiratory: Asthma Neuro: None Endocrine/Autoimmune: None GI: GERD : None HEENT: None Psych: Depression, Anxiety, Panic attacks, ADD/ADHD, Other Musculoskeletal: Chronic back pain Derm: None - Past Surgical History Past Surgical History: Yes General: Appendectomy - Present Medications Home Medications: Ambulatory Orders Medication Instructions Recorded Confirmed Albuterol Sulfate [Proair 90 mcg IH Q4HR PRN 09/06/23 09/06/23 Digihaler] - Allergies Allergies/Adverse Reactions: Allergies Allergy/AdvReac Type Severity Reaction Status Date / Time amphetamine [From Adderall] AdvReac Hallucinati Verified 09/06/23 05:17 ons dextroamphetamine AdvReac Hallucinati Verified 09/06/23 05:17 [From Adderall] ons - Social History Does the pt smoke?: Yes Smoking Status: Current every day smoker Does the pt drink ETOH?: Yes Does the pt have substance abuse?: Yes Substance Use and Type: Marijuana - Immunizations Immunizations are current?: No Immunizations: Other immun not current - POLST Patient has POLST: No PD ED PE NORMAL - Vitals Vital signs reviewed: Yes - General General: Alert and oriented X 3, No acute distress, Well developed/nourished PD ED PE EXPANDED - HEENT HEENT: Other (no active bleeding; there is trace, focal hyperemia of anterior septum left nare) Results - Vitals Vitals: Vital Signs - 24 hr 09/06/23 05:17 Temperature 36.6 C Heart Rate 101 H Respiratory 16 Rate Blood Pressure 136/94 H O2 Saturation 100 Oxygen O2 Source Room air PD Medical Decision Making - ED course Complexity details: considered differential, d/w patient ED course: No active epistaxis on my exam. As noted under physical exam, above, there is a focus of hyperemia of the left nare septum. Given the patient is reporting that the epistaxis have been has been starting and stopping many times since its onset last night, I gently prodded to the area of hyperemia with a sterile cotton swab to see if this would provoke recurrence of the epistaxis. As it did not, no indications (such as cautery) are indicated at this time. Return precautions reviewed with patient. I advised him that he can use Afrin per label instructions if the bleeding reoccurs (patient says he has Afrin at home already), and then to apply nasal clips for 15-20 minutes (which are provided prior to discharge from the emergency department). Departure - Departure Disposition: 01 Home, Self Care Clinical Impression: Epistaxis Condition: Good Instructions: ED Nosebleed Comments: There is no active nosebleed at the time of this ER evaluation. As we discussed, if the bleeding starts again, you can use Afrin nasal spray (available [id number]) as per the directions on the back of the bottle (you only need to spray into the affected/bleeding side). As soon as you have used the Afrin, you can then apply pressure to both sides of your nose with your thumb and forefinger or, more conveniently, use the nasal clips provided. Hold pressure (or use the nasal clips) for 15 to 20 minutes and then remove. You can repeat this process until the bleeding stops, but if it immediately recurs after 3 consecutive attempts, consider coming back to the emergency department. Forms: PCP List Discharge Date/Time: 09/06/23 06:23
[2023-09-06 05:30] VITALS: BP 136/94; O2SAT 100
== END 2023-09-06 06:23 | disposition home or self-care (01) ==
LOC: ED 05:12
DX: R04.0 Epistaxis (principal); F17.200 Nicotine dependence, unspecified, uncomplicated
CPT/HCPCS: 99282; 99283

== ENCOUNTER 2023-09-07 20:36 | Emergency (ER) | payer SELFPAY ==
[2023-09-07 20:55] VITALS: BP 118/67; O2SAT 99
--- NOTE | 2023-09-07 21:56 | ED Physician Documentation ---
PD HPI DYSPNEA - Stated complaint Stated Complaint: CP/SOA - Chief complaint Chief Complaint: Resp - History obtained from History obtained from: Patient - Additional information Additional information: Patient is a 17-year-old male with a history of asthma presenting for evaluation of feeling short of air earlier today. Patient states he was outside a few hours ago and He was feeling some shortness of air. He feels this is his asthma flaring up and states he has been out of his inhaler for a few months. He states he feels better now but is requesting a refill of his albuterol as well as a note for his job as he was unable to make it to work today. Denies URI symptoms with cough or congestion or fever. No chest pain. States he feels better and back to normal now. No recent travel. Review of Systems Constitutional: denies: Fever Cardiac: denies: Chest pain / pressure Respiratory: reports: Dyspnea PD PAST MEDICAL HISTORY - Past Medical History Past Medical History: Yes Cardiovascular: None Respiratory: Asthma Neuro: None Endocrine/Autoimmune: None GI: GERD : None HEENT: None Psych: Depression, Anxiety, Panic attacks, ADD/ADHD, Other Musculoskeletal: Chronic back pain Derm: None - Past Surgical History Past Surgical History: Yes General: Appendectomy - Present Medications Home Medications: Ambulatory Orders Medication Instructions Recorded Confirmed Albuterol Sulfate [Proair 90 mcg IH Q4HR PRN 09/06/23 09/07/23 Digihaler] Albuterol Sulf [Ventolin Hfa 1 - 2 puffs INH Q4HR PRN #1 each 09/07/23 Inhaler] - Allergies Allergies/Adverse Reactions: Allergies Allergy/AdvReac Type Severity Reaction Status Date / Time amphetamine [From Adderall] AdvReac Hallucinati Verified 09/06/23 05:17 ons dextroamphetamine AdvReac Hallucinati Verified 09/06/23 05:17 [From Adderall] ons - Social History Does the pt smoke?: Yes Smoking Status: Current every day smoker Does the pt drink ETOH?: Yes Does the pt have substance abuse?: Yes - Immunizations Immunizations are current?: No Immunizations: Other immun not current - POLST Patient has POLST: No PD ED PE NORMAL - General General: Alert and oriented X 3, No acute distress, Well developed/nourished - HEENT HEENT: Atraumatic - Neck Neck: Supple, no meningeal sign - Cardiac Cardiac: RRR, Strong equal pulses - Respiratory Respiratory: No respiratory distress, Clear bilaterally - Derm Derm: Warm and dry - Neuro Neuro: Normal speech Results - Vitals Vitals: Vital Signs - 24 hr 09/07/23 20:49 Temperature 36.7 C Heart Rate 91 Respiratory 18 Rate Blood Pressure 118/67 O2 Saturation 99 Oxygen O2 Source Room air PD Medical Decision Making - ED course ED course: Patient presenting for evaluation of feeling short of air earlier today which he states felt like his asthma flaring up. He has been out of his inhaler for a few months. He is requesting a note for work. Vital signs are stable here and he is asymptomatic with clear lung sounds. Albuterol refill sent to his pharmacy. Patient counseled on importance of having a PCP for follow-up as well as concerning symptoms to return for. Departure - Departure Disposition: 01 Home, Self Care Clinical Impression: Medication refill, History of asthma Condition: Stable Instructions: ED Bronchitis Asthmatic Prescriptions: Albuterol Sulf [Ventolin Hfa Inhaler] 1 - 2 puffs INH Q4HR PRN #1 each PRN Reason: Shortness Of Air/Wheezing Comments: Medication refill was sent to [facility] in [place]. You would benefit from having a primary care provider. There is a list provided to you in your discharge papers. Please reach out to local clinics and establish care with one. Forms: PCP List, Activity restrictions Discharge Date/Time: 09/07/23 22:00
== END 2023-09-07 22:00 | disposition home or self-care (01) ==
LOC: ED 20:36
DX: J45.909 Unspecified asthma, uncomplicated (principal); Z76.0 Encounter for issue of repeat prescription; F17.200 Nicotine dependence, unspecified, uncomplicated
CPT/HCPCS: 99282; 99283

== ENCOUNTER 2023-09-08 16:18 | Emergency (ER) | payer OTHER ==
[2023-09-08 17:00] VITALS: O2SAT 99
--- NOTE | 2023-09-08 18:09 | XRAY Report ---
PROCEDURE: Shoulder 2+V LT INDICATIONS: fall, pain TECHNIQUE: 3 views of the shoulder were acquired. COMPARISON: None. FINDINGS: Bones: No fractures or dislocations. No suspicious bony lesions. Visualized ribs appear intact. Soft tissues: No suspicious soft tissue calcifications. The visualized lungs are within normal limi ts. IMPRESSION: No visualized acute fracture or dislocation. However, occult injury cannot be excluded. Recommend patience rt interval imaging follow-up in 7-10 days as clinically indicated for additional evaluation. Reviewed by: Shakira Cheng MD on 09/08/2023 6:08 PM PDT Approved by: Shakira Cheng MD on 09/08/2023 6:08 PM PDT Station ID: [id number]
--- NOTE | 2023-09-08 18:11 | ED Physician Documentation ---
PD HPI UPPER EXT INJURY - Stated complaint Stated Complaint: L SHOULDER PX, FALL - Chief complaint Chief Complaint: Ext Problem - History obtained from History obtained from: Patient - History of Present Illness Location: Left, Shoulder Type of injury: Fall Where injury occurred: Work Pain level max: 5 Pain level now: 5 Improved by: Rest, Immobilization Worsened by: Moving, Palpating - Additonal information Additional information: Patient states that he was at work today when he fell off of a ladder, he grabbed the top of the ladder with his left arm and now has pain to the left shoulder. Has full range of motion, but states that it hurts. No numbness or tingling. No head, neck, back pain. Not on blood thinners. Has not taken anything for pain. Review of Systems Musculoskeletal: denies: Neck pain, Back pain Neurologic: denies: Headache, Head injury PD PAST MEDICAL HISTORY - Past Medical History Cardiovascular: None Respiratory: Asthma Neuro: None Endocrine/Autoimmune: None GI: GERD : None HEENT: None Psych: Depression, Anxiety, Panic attacks, ADD/ADHD, Other Musculoskeletal: Chronic back pain Derm: None - Past Surgical History Past Surgical History: Yes General: Appendectomy - Present Medications Home Medications: Ambulatory Orders Medication Instructions Recorded Confirmed Albuterol Sulfate [Proair 90 mcg IH Q4HR PRN 09/06/23 09/07/23 Digihaler] Albuterol Sulf [Ventolin Hfa 1 - 2 puffs INH Q4HR PRN #1 each 09/07/23 Inhaler] - Allergies Allergies/Adverse Reactions: Allergies Allergy/AdvReac Type Severity Reaction Status Date / Time amphetamine [From Adderall] AdvReac Hallucinati Verified 09/08/23 16:54 ons dextroamphetamine AdvReac Hallucinati Verified 09/08/23 16:54 [From Adderall] ons - Social History Does the pt smoke?: Yes Smoking Status: Current every day smoker Does the pt drink ETOH?: Yes Does the pt have substance abuse?: Yes - Immunizations Immunizations are current?: No Immunizations: Other immun not current - POLST Patient has POLST: No PD ED PE NORMAL - Vitals Vital signs reviewed: Yes - General General: Alert and oriented X 3, No acute distress - HEENT HEENT: Atraumatic, Moist mucous membranes - Neck Neck: Supple, no meningeal sign, No bony TTP - Cardiac Cardiac: RRR - Respiratory Respiratory: No respiratory distress, Clear bilaterally - Back Back: No spinal TTP - Derm Derm: Warm and dry - Extremities Extremities: Other (L shoulder - No pain with passive range of motion of left shoulder. No numbness or tingling. No deformity. Neurovascularly intact. ) - Neuro Neuro: Alert and oriented X 3 Results - Vitals Vitals: Oxygen O2 Source Room air - Rads (name of study) L shoulder xray Relevant Findings:: Final report received, See rad report PD Medical Decision Making - ED course Complexity details: reviewed results, considered differential, d/w patient ED course: No acute findings on x-ray of the left shoulder. No pain with passive range of motion. Appears to have a shoulder sprain. Declines a sling. Declines pain, medication here or for Home. L and I paperwork filled out. We will have him follow up with his doctor for further care. Patient counseled regarding signs and symptoms for which I believe an urgent re-evaluation would be necessary. Patient with good understanding of and agreement to plan and is comfortable going home at this time. This document was made in part using voice recognition software. While efforts are made to proofread this document, sound alike and grammatical errors may occur. Departure - Departure Disposition: 01 Home, Self Care Clinical Impression: Left shoulder strain Qualifiers: Encounter type: initial encounter Qualified Code(s): S46.912A - Strain of unspecified muscle, fascia and tendon at shoulder and upper arm level, left arm, initial encounter Condition: Good Instructions: ED Sprain Shoulder Follow-Up: your,doctor in 1 week [Other] Comments: Your x-ray does not show any acute abnormalities. Please follow-up with your doctor for further care. You can use Motrin or Tylenol as needed for pain. Forms: PCP List, Activity restrictions Discharge Date/Time: 09/08/23 18:22
[2023-09-08 18:27] VITALS: BP 116/73
== END 2023-09-08 18:22 | disposition home or self-care (01) ==
LOC: ED 16:18
DX: S46.912A Strain of unspecified muscle, fascia and tendon at shoulder and upper arm level, left arm, initial encounter (principal); W11.XXXA Fall on and from ladder, initial encounter; F17.200 Nicotine dependence, unspecified, uncomplicated
CPT/HCPCS: 1040M; 73030; 99283

== ENCOUNTER 2023-09-10 11:52 | Emergency (ER) | payer OTHER ==
[2023-09-10 12:15] VITALS: BP 123/79; O2SAT 100
--- NOTE | 2023-09-10 12:34 | ED Physician Documentation ---
PD HPI UPPER EXT INJURY - Stated complaint Stated Complaint: LT SHOULDER,LEG PX - Chief complaint Chief Complaint: Ext Problem - History obtained from History obtained from: Patient - Additonal information Additional information: 17-year-old male presents with left shoulder and left thigh tenderness after falling off a ladder 2 days ago. He was seen at that time and had reassuring imaging and states he is just a little sore today but needs a note because he missed work. 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 He has not had any swelling of the areas, and is taking Tylenol with some relief, and plans to go to work tomorrow. PD PAST MEDICAL HISTORY - Past Medical History Cardiovascular: None Respiratory: Asthma Neuro: None Endocrine/Autoimmune: None GI: GERD : None HEENT: None Psych: Depression, Anxiety, Panic attacks, ADD/ADHD, Other Musculoskeletal: Chronic back pain Derm: None - Past Surgical History Past Surgical History: Yes General: Appendectomy - Present Medications Home Medications: Ambulatory Orders Medication Instructions Recorded Confirmed Albuterol Sulfate [Proair 90 mcg IH Q4HR PRN 09/06/23 09/07/23 Digihaler] Albuterol Sulf [Ventolin Hfa 1 - 2 puffs INH Q4HR PRN #1 each 09/07/23 Inhaler] - Allergies Allergies/Adverse Reactions: Allergies Allergy/AdvReac Type Severity Reaction Status Date / Time amphetamine [From Adderall] AdvReac Hallucinati Verified 09/10/23 12:05 ons dextroamphetamine AdvReac Hallucinati Verified 09/10/23 12:05 [From Adderall] ons - Social History Does the pt smoke?: Yes Smoking Status: Current every day smoker Does the pt drink ETOH?: Yes Does the pt have substance abuse?: Yes - Immunizations Immunizations are current?: No Immunizations: Other immun not current - POLST Patient has POLST: No PD ED PE NORMAL - Vitals Vital signs reviewed: Yes - General General: Alert and oriented X 3, No acute distress, Well developed/nourished - HEENT HEENT: Atraumatic, Moist mucous membranes - Cardiac Cardiac: RRR, No murmur - Respiratory Respiratory: No respiratory distress, Clear bilaterally - Derm Derm: Normal color, Warm and dry, No rash - Extremities Extremities: No deformity, Normal ROM s pain, Other (Full left shoulder ROM, no deformity, no impingement signs "it's just a little sore.") - Neuro Neuro: Alert and oriented X 3 Eye Opening: Spontaneous Motor: Obeys Commands Verbal: Oriented GCS Score: 15 - Psych Psych: Normal mood, Normal affect Results - Vitals Vitals: Vital Signs - 24 hr 09/10/23 11:57 Temperature 36.8 C Heart Rate 76 Respiratory 16 Rate Blood Pressure 123/79 O2 Saturation 100 Oxygen O2 Source Room air PD Medical Decision Making - ED course Complexity details: reviewed results, d/w patient ED course: 17-year-old male presented with left-sided shoulder and thigh pain/tenderness after a fall a couple of days ago as described in HPI. He was evaluated at that time and had reassuring imaging but continues to be slightly sore. He is simply asking for a note off work today. He has no new injuries on exam, has good range of motion no obvious deformities no signs of infection. He was vies to use ibuprofen and Tylenol as needed for pain he was given a day off work today but plans to go to work tomorrow. Departure - Departure Disposition: 01 Home, Self Care Clinical Impression: Pain of upper extremity Qualifiers: Laterality: left Qualified Code(s): M79.602 - Pain in left arm Condition: Good Instructions: ED Sprain Shoulder Comments: Please continue resting the shoulder, you can take ibuprofen and Tylenol as needed for pain, use a cool or warm compresses comfortable. I have given you a note for the day off of work. Forms: PCP List, Activity restrictions
== END 2023-09-10 12:41 | disposition home or self-care (01) ==
LOC: ED 11:52
DX: M25.512 Pain in left shoulder (principal); F17.200 Nicotine dependence, unspecified, uncomplicated; Z79.899 Other long term (current) drug therapy
CPT/HCPCS: 99281; 99282

== ENCOUNTER 2023-09-13 15:19 | Emergency (ER) | payer OTHER ==
[2023-09-13 15:36] VITALS: BP 130/80; O2SAT 98
--- NOTE | 2023-09-13 18:01 | ED Physician Documentation ---
History of Present Illness - Stated complaint Stated Complaint: LT SHOULDER INJ FOLLOW UP - Chief complaint Chief Complaint: General - Additonal information Additional information: 17-year-old male presents emergency department for a note to return to work. Patient had been to the emergency department a few days ago for right shoulder strain. Imaging was complete and no acute abnormalities were found. He presented back to the emergency department a couple days ago for a work note to be excused from work and a work note was given to him to have a couple days off of work. He then presents back to the emergency department today for road note to be released back to work with no limitations or restrictions. Denies any left shoulder pain or injury. PD PAST MEDICAL HISTORY - Past Medical History Past Medical History: Yes Cardiovascular: None Respiratory: Asthma Neuro: None Endocrine/Autoimmune: None GI: GERD : None HEENT: None Psych: Depression, Anxiety, Panic attacks, ADD/ADHD, Other Musculoskeletal: Chronic back pain Derm: None - Past Surgical History Past Surgical History: Yes General: Appendectomy - Present Medications Home Medications: Ambulatory Orders Medication Instructions Recorded Confirmed Albuterol Sulf [Ventolin Hfa 1 - 2 puffs INH Q4HR PRN #1 each 09/07/23 09/13/23 Inhaler] Acetaminophen [Tylenol] 1,000 mg PO Q8HR PRN 09/13/23 09/13/23 - Allergies Allergies/Adverse Reactions: Allergies Allergy/AdvReac Type Severity Reaction Status Date / Time amphetamine [From Adderall] AdvReac Hallucinati Verified 09/13/23 15:31 ons dextroamphetamine AdvReac Hallucinati Verified 09/13/23 15:31 [From Adderall] ons - Social History Does the pt smoke?: Yes Smoking Status: Current every day smoker Does the pt drink ETOH?: Yes Does the pt have substance abuse?: Yes - Immunizations Immunizations are current?: No Immunizations: Other immun not current - POLST Patient has POLST: No PD ED PE NORMAL - Vitals Vital signs reviewed: Yes - General General: Alert and oriented X 3, No acute distress, Well developed/nourished - Extremities Extremities: No deformity, No tenderness to palpate, Normal ROM s pain, No edema - Neuro Neuro: Alert and oriented X 3 - Psych Psych: Normal mood, Normal affect Results - Vitals Vitals: Vital Signs - 24 hr 09/13/23 15:32 Temperature 36.8 C Heart Rate 100 Respiratory 16 Rate Blood Pressure 130/80 O2 Saturation 98 Oxygen O2 Source Room air PD Medical Decision Making - ED course ED course: 17-year-old male presents emergency department for a note to be released back to work. Patient denies any left shoulder pain or injury and x-rays have already been completed few days ago and no acute abnormalities were found. A work note was given to the patient he was informed to try to make sure that he is utilizing the emergency department for emergencies and did not be coming into the emergency department for work notes if he is able to avoid so. Patient did state that he attempted to go to urgent care and they sent him here to the emergency department. I currently suggested making sure that he has a primary care provider so that he can have these things taken care of with his primary care provider and patient understands. Work note given patient safe to return to work without any restrictions or limitations. Departure - Departure Disposition: 01 Home, Self Care Clinical Impression: Work-related condition Instructions: Exercises Shoulder Flexibility Comments: I have given you a work note and released you back to work with no restrictions. In the future it is very important that you are not utilizing the emergency department for work notes and that you are utilizing the emergency department for emergencies only. Forms: PCP List, Activity restrictions Discharge Date/Time: 09/13/23 18:17
== END 2023-09-13 18:17 | disposition home or self-care (01) ==
LOC: ED 15:19
DX: Z09 Encounter for follow-up examination after completed treatment for conditions other than malignant neoplasm (principal); F17.200 Nicotine dependence, unspecified, uncomplicated
CPT/HCPCS: 99281; 99282

== ENCOUNTER 2023-09-16 20:40 | Emergency (ER) | payer MEDICAID ==
[2023-09-16 20:55] VITALS: BP 133/73; O2SAT 99
--- NOTE | 2023-09-16 21:15 | ED Physician Documentation ---
PD HPI LOWER EXT INJURY - Stated complaint Stated Complaint: SOA/R LEG PX - Chief complaint Chief Complaint: Resp - History obtained from History obtained from: Patient - Additional information Additional information: Patient is a 17-year-old male presenting for evaluation of the pain around the right knee that has been intermittent for a few days but worsening today. Patient works at the [employer] and states that it was already hurting when he went to work this morning. He reports that it caused him to fall off ladders a few times today and he did fall onto the knee. He he was evaluated at work and finished up around 2:00. He was told he should go to the emergency department for evaluation. Patient has had numerous ED visits over the past month (approximately 10). He states that his work environment is quite stressful and the pace that they expect for workers to work is challenging causing him to injure himself. Denies head injury. No headache. Tried Tylenol and ibuprofen earlier today but none since around 2:00. Does not take blood thinners. He has been ambulating. Review of Systems Constitutional: denies: Fever Cardiac: denies: Chest pain / pressure Respiratory: denies: Dyspnea GI: denies: Abdominal Pain Musculoskeletal: reports: Extremity pain Neurologic: denies: Head injury PD PAST MEDICAL HISTORY - Past Medical History Cardiovascular: None Respiratory: Asthma Neuro: None Endocrine/Autoimmune: None GI: GERD : None HEENT: None Psych: Depression, Anxiety, Panic attacks, ADD/ADHD, Other Musculoskeletal: Chronic back pain Derm: None - Past Surgical History Past Surgical History: Yes General: Appendectomy - Present Medications Home Medications: Ambulatory Orders Medication Instructions Recorded Confirmed Albuterol Sulf [Ventolin Hfa 1 - 2 puffs INH Q4HR PRN #1 each 09/07/23 09/13/23 Inhaler] Acetaminophen [Tylenol] 1,000 mg PO Q8HR PRN 09/13/23 09/16/23 - Allergies Allergies/Adverse Reactions: Allergies Allergy/AdvReac Type Severity Reaction Status Date / Time amphetamine [From Adderall] AdvReac Hallucinati Verified 09/16/23 20:50 ons dextroamphetamine AdvReac Hallucinati Verified 09/16/23 20:50 [From Adderall] ons - Social History Does the pt smoke?: Yes Smoking Status: Current every day smoker Does the pt drink ETOH?: Yes Does the pt have substance abuse?: Yes - Immunizations Immunizations are current?: No Immunizations: Other immun not current - POLST Patient has POLST: No PD ED PE NORMAL - General General: Alert and oriented X 3, No acute distress, Well developed/nourished - HEENT HEENT: Atraumatic - Neck Neck: Supple, no meningeal sign - Cardiac Cardiac: RRR, Strong equal pulses - Respiratory Respiratory: No respiratory distress, Clear bilaterally - Derm Derm: Warm and dry - Extremities Extremities: No deformity, No edema, No calf tenderness / cord, Other (Reports pain in the right knee with range of motion) - Neuro Neuro: Alert and oriented X 3, No motor deficit, No sensory deficit, Normal speech Results - Vitals Vitals: Vital Signs - 24 hr 09/16/23 20:44 Temperature 36.9 C Heart Rate 104 H Respiratory 17 Rate Blood Pressure 133/73 H O2 Saturation 99 Oxygen O2 Source Room air PD Medical Decision Making - ED course Complexity details: reviewed results, d/w patient ED course: Patient with knee pain to the right knee. No visible trauma or injury. Neurovascularly intact. No deformity. X-ray was obtained to reviewed I see no fracture or dislocation. Offered crutches which patient declines. Jeronimo wrap applied and patient counseled on continued supportive care. Stressed importance of establishing care with PCP. Patient has had numerous ED visits over the last month and understands concerning symptoms to return for. Departure - Departure Disposition: 01 Home, Self Care Clinical Impression: Right knee pain Condition: Stable Instructions: ED Knee Pain UKO, ED RICE Comments: Your x-ray does not show a broken bone or dislocation. You may have a sprain to the knee joint. We have recommended an Jeronimo wrap, ice, elevation and Activity as tolerated. I would recommend follow-up with her primary care doctor. Given the number of ED visits that you have had over the last month I do think it would be beneficial for you to establish care with a primary care doctor who could maybe offer more long-term restrictions for your job as needed. Return to the ER with any worsening symptoms. Forms: PCP List, Activity restrictions Discharge Date/Time: 09/16/23 23:01
[2023-09-16] MEDS: ACETAMINOPHEN 325 MG TABLET PO STA ×2 (22:35→22:38)
--- NOTE | 2023-09-16 23:16 | XRAY Report ---
PROCEDURE: Knee 3V RT INDICATIONS: pain after fall TECHNIQUE: 3 views of the knee(s) were acquired. COMPARISON: None. FINDINGS: Bones: No displaced fracture or dislocation Soft tissues: No suspicious calcifications. Possible joint effusion. IMPRESSION: No acute radiographic abnormality. Possible joint effusion. If there is high concern for further dera ngement, consider MRI evaluation. Reviewed by: Ellis Arshad MD on 09/16/2023 11:15 PM PDT Approved by: Ellis Arshad MD on 09/16/2023 11:15 PM PDT Station ID: [id number]
== END 2023-09-16 23:01 | disposition home or self-care (01) ==
LOC: ED 20:40
DX: M25.561 Pain in right knee (principal); J45.909 Unspecified asthma, uncomplicated; F17.200 Nicotine dependence, unspecified, uncomplicated
CPT/HCPCS: 73562; 99283; A9270

== ENCOUNTER 2023-11-11 00:01 | Emergency (ER) | payer OTHER, MEDICAID ==
--- NOTE | 2023-11-11 00:46 | ED Physician Documentation ---
PD HPI HEAD INJURY - Stated complaint Stated Complaint: HEAD INJ - Chief complaint Chief Complaint: Trauma Hd/Nk - History obtained from History obtained from: Patient - Additional information Additional information: HPI from patient. Patient says that approximately 1 hour [employer]ME[employer], he was trying to get into the back of his van when he lost his footing due to wet surface, causing him to fall backwards. He says he struck his head on the pavement. He does not think he lost consciousness. He says he had nausea with vomiting but the nausea and vomiting have completely resolved by the time of this HPI. He complains of mild generalized headache. He denies neck pain, visual changes, numbness, weakness. PD PAST MEDICAL HISTORY - Past Medical History Past Medical History: Yes Cardiovascular: None Respiratory: Asthma Neuro: None Endocrine/Autoimmune: None GI: GERD : None HEENT: None Psych: Depression, Anxiety, Panic attacks, ADD/ADHD, Other Musculoskeletal: Chronic back pain Derm: None - Past Surgical History Past Surgical History: Yes General: Appendectomy - Present Medications Home Medications: Ambulatory Orders Medication Instructions Recorded Confirmed Albuterol Sulf [Ventolin Hfa 1 - 2 puffs INH Q4HR PRN #1 each 09/07/23 09/13/23 Inhaler] Acetaminophen [Tylenol] 1,000 mg PO Q8HR PRN 09/13/23 09/16/23 - Allergies Allergies/Adverse Reactions: Allergies Allergy/AdvReac Type Severity Reaction Status Date / Time amphetamine [From Adderall] AdvReac Hallucinati Verified 11/11/23 00:05 ons dextroamphetamine AdvReac Hallucinati Verified 11/11/23 00:05 [From Adderall] ons - Social History Does the pt smoke?: Yes Smoking Status: Current every day smoker Does the pt drink ETOH?: Yes Does the pt have substance abuse?: Yes - Immunizations Immunizations are current?: No Immunizations: Other immun not current - POLST Patient has POLST: No PD ED PE NORMAL - Vitals Vital signs reviewed: Yes - General General: Alert and oriented X 3, No acute distress, Well developed/nourished - HEENT HEENT: Atraumatic, PERRL, EOMI, Ears normal, Other (no postauricular ecchymosis, no periorbital ecchymosis) - Neck Neck: No bony TTP - Cardiac Cardiac: RRR, No murmur - Respiratory Respiratory: No respiratory distress, Clear bilaterally - Neuro Neuro: Alert and oriented X 3, manager location 2-12 intact, No motor deficit, No sensory deficit, Normal speech Eye Opening: Spontaneous Motor: Obeys Commands Verbal: Oriented GCS Score: 15 - Psych Psych: Normal mood, Normal affect Results - Vitals Vitals: Vital Signs - 24 hr 11/11/23 11/11/23 00:05 02:00 Temperature 36.8 C Heart Rate 75 88 Respiratory 16 16 Rate Blood Pressure 135/78 H 131/82 H O2 Saturation 95 98 Oxygen O2 Source Room air PD Medical Decision Making - ED course Complexity details: considered differential, d/w patient ED course: No indication at this time for emergent testing, specifically imaging (such as CTH). Denies LOC, describes his headache as "more annoying than pain" (per patient). Unremarkable physical exam including neurologic exam. We discussed the lack of indications for CT scan of his head and patient is comfortable with no testing at this time. Return precautions are carefully reviewed. Departure - Departure Disposition: 01 Home, Self Care Condition: Fair Forms: PCP List Discharge Date/Time: 11/11/23 02:01
[2023-11-11 02:01] VITALS: BP 131/82; O2SAT 98
== END 2023-11-11 02:01 | disposition home or self-care (01) ==
LOC: ED 00:01
DX: S09.90XA Unspecified injury of head, initial encounter (principal); V58.9XXA Unspecified occupant of pick-up truck or van injured in noncollision transport accident in traffic accident, initial encounter; F17.200 Nicotine dependence, unspecified, uncomplicated; Z79.899 Other long term (current) drug therapy
CPT/HCPCS: 1040M; 99281; 99283

== ENCOUNTER 2023-11-13 20:25 | Emergency (ER) | payer MEDICAID ==
--- NOTE | 2023-11-13 20:39 | ED Physician Documentation ---
History of Present Illness - Stated complaint Stated Complaint: CHEST PX - Chief complaint Chief Complaint: Cardiac - Additonal information Additional information: 18-year-old male with history of asthma, pyogenic granuloma of oral mucosa, c annabinoid hyperemesis presents with chest pain. He states for the last 2 hours, after eating at [employer], he has had mild substernal chest pressure that is not radiating. It is not pleuritic, positional, or worsened with exertion. He walks up stairs during work and has no pain typically. No focal numbness or weakness. No shortness of breath. No fevers or chills. He states he feels overall comfortable. No leg swelling or pain. No recent travel or surgery. No other new concerns. He smokes. He takes Adderall. Per chart review, patient has been seen in the ER roughly 12 times since early August,. He was seen here 2 days ago for head injury, discharged in stable condition. He was seen here in August with dyspnea, which felt like asthma. Albuterol was refilled and he was discharged in stable condition. ROS Constitutional: no fever, no chills Eyes: no visual disturbance, no discharge Ears, Nose, Mouth, Throat: no rhinorrhea, no sore throat Cardiovascular: +chest pain, no palpitations Respiratory: no cough, no shortness of breath Gastrointestinal: no abdominal pain, no vomiting, no diarrhea Genitourinary: no dysuria, no hematuria Musculoskeletal: no back pain, no neck stiffness Skin: no rash, no wound Neurological: no focal weakness, no focal numbness PD PAST MEDICAL HISTORY - Past Medical History Past Medical History: Yes Cardiovascular: None Respiratory: Asthma Neuro: None Endocrine/Autoimmune: None GI: GERD : None HEENT: None Psych: Depression, Anxiety, Panic attacks, ADD/ADHD, Other Musculoskeletal: Chronic back pain Derm: None - Past Surgical History Past Surgical History: Yes General: Appendectomy - Present Medications Home Medications: Ambulatory Orders Medication Instructions Recorded Confirmed Albuterol Sulf [Ventolin Hfa 1 - 2 puffs INH Q4HR PRN #1 each 09/07/23 09/13/23 Inhaler] Acetaminophen [Tylenol] 1,000 mg PO Q8HR PRN 09/13/23 09/16/23 Pantoprazole [Protonix] 40 mg PO DAILY #14 tablet 11/13/23 - Allergies Allergies/Adverse Reactions: Allergies Allergy/AdvReac Type Severity Reaction Status Date / Time amphetamine [From Adderall] AdvReac Hallucinati Verified 11/13/23 20:30 ons dextroamphetamine AdvReac Hallucinati Verified 11/13/23 20:30 [From Adderall] ons - Social History Does the pt smoke?: Yes Smoking Status: Current every day smoker Does the pt drink ETOH?: Yes Does the pt have substance abuse?: Yes - Immunizations Immunizations are current?: No Immunizations: Other immun not current - POLST Patient has POLST: No PD ED PE NORMAL - Free text exam Free text exam: Const: no acute distress, non toxic appearing; calm, conversant, pleasant Eyes: PERRLA, EOMI ENT: mucous membranes moist Neck: supple, non-tender Resp: no respiratory distress, clear to auscultation bilaterally Card: regular rate and rhythm, no murmurs, no chest wall tenderness Abd: non tender diffusely, no rigidity or rebound or guarding Back: no T or L spine tenderness, no CVA tenderness bilaterally Extrem: no deformities, no swelling bilateral lower extremities, 2+ distal pulses all extremities Neuro: ANOx4, rectification printer grossly intact, intact sensation and strength all extremities, normal coordination Skin: no rash, warm and dry Results - Vitals Vitals: Vital Signs - 24 hr 11/13/23 11/13/23 11/13/23 20:30 21:18 21:58 Temperature 36.8 C 36.8 C Heart Rate 100 100 85 Respiratory 16 16 Rate Blood Pressure 130/66 126/70 O2 Saturation 98 99 Oxygen O2 Source Room air - EKG (time done) EKG NSR without acute ischemia or immediately concerning interval prolongation on my review. Note EKG has similar morphology to September 08, 2022 EKG. EKG releavant findings:: EKG personally interpreted by author of this note. Relevant findings are: - Rads (name of study) CXR Relevant Findings:: EMP independent interpretation of test, See rad report (CXR without focal opacity or pneumothorax per my independent review), Other PD Medical Decision Making - ED course ED course: This young patient presents with substernal chest pain, not exertional as previously described, fully neurovascularly intact, not dyspneic, comfortable appearing. Given this appears to potentially associate with eating, gastric cause such as reflux, gastritis seem most likely. Pneumothorax is unlikely, however given asthma history, I am obtaining chest x-ray. Arrhythmia and particularly ACS are extremely unlikely clinically, however I am obtaining EKG for screening purposes. This is not consistent with aortic dissection, pulmonary embolism, Boerhaave's, tamponade. I am trialing Maalox and viscous lidocaine and will reassess. EKG NSR without acute ischemia or immediately concerning interval prolongation on my review. Note EKG has similar morphology to September 08, 2022 EKG. CXR: I agree with radiology read below of imaging on my independent review of imaging. "FINDINGS: Surgical changes and devices: None. Lungs and pleura: No pleural effusions or pneumothorax. Lungs are clear. Mediastinum: Mediastinal contours appear normal. Heart size is normal. Bones and chest wall: No suspicious bony lesions. Overlying soft tissues appear unremarkable. IMPRESSION: No acute cardiopulmonary process. Reviewed by: Eirk Duncan MD on 11/13/2023 8:56 PM PDT" Patient has had full pain resolution after GI cocktail. This is strongly suggestive of GI cause. I am prescribing 14d pantoprazole and discussing follow up, return precautions. Patient appears well, asymptomatic, ambulatory, fully neurovascularly intact, not dyspneic, with no other new concerns. Results of work up today were discussed with the patient. Patient ambulatory and tolerating PO. Repeat exams and vital signs reassuring. Patient questions answered and plan reviewed. Strong return precautions given. Patient discharged. Departure - Departure Disposition: 01 Home, Self Care Clinical Impression: Chest pain Qualifiers: Chest pain type: other chest pain Qualified Code(s): R07.89 - Other chest pain Condition: Good Instructions: ED Chest Pain Atypical Unkn Cause Prescriptions: Pantoprazole [Protonix] 40 mg PO DAILY #14 tablet Comments: It was a pleasure taking care of you today. It is important to fully read and understand the below. Please ask us if you have any questions. We think the most likely cause of your chest pain may be gastrointestinal related, such as stomach or esophagus irritation or reflux. Please try pantoprazole daily for 14 days to see if this helps. This is an acid stephy medication. Regardless, it is important to see a primary doctor within 3 to 5 days to be reassessed. No tests or assessments are perfect, and your condition could exchange mechanic time. If your symptoms change or worsen, it is very important you immediately seek medical care. If you have any new or worsening pain, lightheadedness or passing out, shortness of breath, feeling your heart beating funny, fever, vomiting, confusion, numbness, weakness, or anything else that concerns you, please immediately seek medical care. If you have been prescribed any medications: please read the drug package inserts on how to properly use the medication and any potential side effects. If you had labs (blood tests) or imaging (CT scan or x-rays) done during your visit: please follow up on the results of these with your primary care doctor, as discussed. In addition, please know the results we received today may be preliminary. Our usual practice is to follow up on tests within a few days of a patient's discharge from the Emergency Department and notify you of any changes. These may lead to changes to your treatment plan. However, the best way to obtain and interpret these test results is through your Primary Care Provider. If you need to update your contact information, please stop by the vest front presser and alert the Registration personnel before you leave the Emergency Department. Thank you for the opportunity to participate in your healthcare. We are always here and happy to see you in the future. Forms: PCP List Discharge Date/Time: 11/13/23 21:59
--- NOTE | 2023-11-13 20:57 | XRAY Report ---
PROCEDURE: Chest 1V INDICATIONS: chest pain, history of asthma TECHNIQUE: One view of the chest was acquired. COMPARISON: 04/24/2022 FINDINGS: Surgical changes and devices: None. Lungs and pleura: No pleural effusions or pneumothorax. Lungs are clear. Mediastinum: Mediastinal contours appear normal. Heart size is normal. Bones and chest wall: No suspicious bony lesions. Overlying soft tissues appear unremarkable. IMPRESSION: No acute cardiopulmonary process. Reviewed by: Erik Duncan MD on 11/13/2023 8:56 PM PDT Approved by: Erik Duncan MD on 11/13/2023 8:56 PM PDT Station ID: [id number]
[2023-11-13] MEDS: MAG HYDROX/AL HYDROX/SIMETH 30 ML UDC PO STA (21:10)
[2023-11-13] MEDS: LIDOCAINE VISCOUS 2% 15 ML UDC MM STA (21:10)
[2023-11-13 22:07] VITALS: BP 126/70; O2SAT 99
== END 2023-11-13 21:59 | disposition home or self-care (01) ==
LOC: ED 20:25
DX: R07.89 Other chest pain (principal); Z79.899 Other long term (current) drug therapy; F17.200 Nicotine dependence, unspecified, uncomplicated
CPT/HCPCS: 71045; 93005; 99283; 99284; A9270